=== PATIENT | male | born 1965 | race Caucasian/White ===

== ENCOUNTER 2024-02-03 14:50 | Emergency (ER) | payer MEDICAID ==
[~2024-02-03] VITALS: Ht 170.2 cm; Wt 66.0 kg
[2024-02-03 15:05] VITALS: O2SAT 95
[2024-02-03 15:08] VITALS: BP 114/81; PULSE 98; RESP 18; TEMP 98.5; O2SAT 98
[2024-02-03] MEDS ORDERED: LACTULOSE 20G/30ML UDC PO NR (17:30)
[2024-02-03 17:53] LABS: CLARITY URINE CLEAR (CLEAR); COLOR URINE YELLOW (YELLOW); GLUCOSE URINE NEGATIVE (NEGATIVE); KETONES URINE TRACE (NEGATIVE); LEUKOCYTE ESTERASE URINE 1+ (NEGATIVE); NITRITE URINE NEGATIVE (NEGATIVE); OCCULT BLOOD URINE NEGATIVE (NEGATIVE); PH URINE 5.5 (4.5-8.0); PROTEIN URINE NEGATIVE (NEGATIVE); SPECIFIC GRAVITY URINE 1.027 (1.005-1.030)
[2024-02-03 17:57] LABS: *AMPHETAMINES SCREEN URINE PRESUMPTIVE POSITIVE (NEGATIVE); *BARBITURATES SCREEN URINE NEGATIVE (NEGATIVE); *BENZODIAZEPINES SCREEN URINE NEGATIVE (NEGATIVE); *COCAINE SCREEN URINE NEGATIVE (NEGATIVE); CANNABINOID URINE SCREEN NEGATIVE (NEGATIVE); ECSTASY MDMA SCREEN URINE CONF.TEST INDICATED (NEGATIVE); METHADONE URINE SCREEN NEGATIVE (NEGATIVE); OPIATES URINE SCREEN NEGATIVE (NEGATIVE); PHENCYCLIDINE URINE SCREEN NEGATIVE (NEGATIVE)
[2024-02-03 18:31] LABS: BACTERIA URINE 1+; RBC URINE 0-2 /hpf (0-2); SQUAMOUS EPITHELIAL CELL URINE FEW /lpf (RARE/1+)
[2024-02-04] MEDS ORDERED: MAG-55 MT (17:08)
[2024-02-04] MEDS ORDERED: TOPUD MT (17:08)
[2024-02-04] MEDS ORDERED: PANT40SU MT (17:08)
== END 2024-02-03 18:40 | disposition left against medical advice (07) ==
LOC: ER 15:00
DX: R10.9 Unspecified abdominal pain (principal); K59.00 Constipation, unspecified; Z98.890 Other specified postprocedural states; Z53.21 Procedure and treatment not carried out due to patient leaving prior to being seen by health care provider
CPT/HCPCS: 80305; 81003

== ENCOUNTER 2024-02-04 10:06 | Emergency (ER) | payer MEDICAID ==
[~2024-02-04] VITALS: Ht 167.6 cm; Wt 64.0 kg
[2024-02-04 10:28] VITALS: O2SAT 100
[2024-02-04 11:31] LABS: BASOPHILS % 0.3 % (0.0-2.0); EOSINOPHILS % 1.6 % (0.0-5.0); HEMATOCRIT. 40.2 % (42.0-52.0); HEMOGLOBIN. 13.4 g/dL (14.0-18.0); LYMPHOCYTES % 22.3 % (20.0-50.0); MEAN CORPUSCULAR HEMOGLOBIN 30.7 pg (28.0-32.0); MEAN CORPUSCULAR HGB CONC 33.3 g/dL (31.0-37.0); MEAN CORPUSCULAR VOLUME 92.1 fL (80.0-94.0); MEAN PLATELET VOLUME 7.1 fl (7.4-10.4); MONOCYTES % 8.2 % (2.0-8.0); NEUTROPHILS % 67.6 % (40.0-76.0); PLATELET 229 x1000/uL (130-400); RED BLOOD CELL COUNT 4.36 mill/uL (4.7-6.1); RED CELL DISTRIBUTION WIDTH 12.9 % (11.6-14.6); WHITE BLOOD COUNT 6.1 x1000/uL (4.5-11.0)
[2024-02-04 11:40] LABS: CHLORIDE 106 mEq/L (98-107); POTASSIUM 3.9 mEq/L (3.5-5.1); SODIUM 139 mEq/L (136-145)
[2024-02-04 11:41] LABS: CALCIUM 8.9 mg/dL (8.7-10.4); CARBON DIOXIDE 25 mEq/L (21-32)
[2024-02-04 11:46] LABS: CREATININE 1.2 mg/dL (0.6-1.3); GLUCOSE 93 mg/dL (70-105); UREA NITROGEN BLOOD 23 mg/dL (9-23)
[2024-02-04] MEDS: ACETAMINOPHEN 325MG TABLET PO ONE (12:05)
[2024-02-04] MEDS: SORBITOL 70% SOLN 30ML PO ONE (12:05)
[2024-02-04] MEDS ORDERED: PANT40SU MT (17:08)
[2024-02-04] MEDS ORDERED: MAG-55 MT (17:08)
[2024-02-04] MEDS ORDERED: TOPUD MT (17:08)
[2024-02-04 17:25] VITALS: BP 105/69; PULSE 77; RESP 18; TEMP 36.61404; O2SAT 98
[2024-02-04] MEDS ORDERED: IOHEXOL-350 100 ML BOTTLE ONE (23:18)
== END 2024-02-04 17:25 | disposition home or self-care (01) ==
LOC: ER 10:06
DX: R10.9 Unspecified abdominal pain (principal)
CPT/HCPCS: 99284; 74176; 80048; 85025; 36415; Q9967

== ENCOUNTER 2024-11-29 13:29 | Emergency (ER) | payer MEDICAID ==
[~2024-11-29] VITALS: Ht 170.2 cm; Wt 86.0 kg
[~2024-11-29 13:29] MED LIST: MAG-55 MT; PANT40SU MT; TOPUD MT
[2024-11-29 13:33] VITALS: BP 168/98; PULSE 98; RESP 20; O2SAT 96
[2024-11-30] MEDS ORDERED: CHLO473M2 MT (18:15)
[2024-11-30] MEDS ORDERED: DOXY100T28 MT (18:15)
[2024-11-30] MEDS ORDERED: TOPUD MT (18:15)
== END 2024-11-29 16:20 | disposition home or self-care (01) ==
LOC: ER 13:29
DX: K14.6 Glossodynia (principal); F31.9 Bipolar disorder, unspecified
CPT/HCPCS: 99283

== ENCOUNTER 2024-11-30 15:28 | Emergency (ER) | payer MEDICAID ==
[~2024-11-30] VITALS: Ht 167.6 cm; Wt 73.0 kg
[2024-11-30 15:33] VITALS: O2SAT 97
[2024-11-30] MEDS: DEXAMETHASONE 10 MG/ML VIAL IM ONE (17:42)
[2024-11-30] MEDS ORDERED: CHLO473M2 MT (18:15)
[2024-11-30] MEDS ORDERED: TOPUD MT (18:15)
[2024-11-30] MEDS ORDERED: DOXY100T28 MT (18:15)
[2024-11-30] MEDS: DIPHENHYDRAMINE 50MG/ML VIAL IM ONE (18:37)
[2024-11-30 18:43] VITALS: BP 122/84; PULSE 86; RESP 17; TEMP 36.7; O2SAT 99
== END 2024-11-30 18:44 | disposition home or self-care (01) ==
LOC: ER 15:28
DX: K14.0 Glossitis (principal); K02.9 Dental caries, unspecified; F31.9 Bipolar disorder, unspecified
CPT/HCPCS: 96372; 99284; J1100; J1200; Z7610 ×2